=== PATIENT | male | born 1995 | race Caucasian/White ===

== ENCOUNTER 2023-11-24 10:13 | Observation (INO) ==
--- NOTE | 2023-11-24 10:49 | Emergency Department Note ---
Impression & Plan Open fracture proximal phalanx finger ED Provider Note CHIEF COMPLAINT: Left middle finger injury HISTORY OF PRESENT ILLNESS: This 28 year old male patient presents to the emergency department via private vehicle approximately 1 hour after injuring the left middle finger at work. The patient states he was putting together a metal cubicle. He states he dropped one of the pieces of metal and it fell, crushing the left middle finger. The patient rates the pain as throbbing and 5/10. The patient has full range of motion of the finger. No numbness or tingling. No lacerations. No other injuries. The patient has not had previous fracture to this finger. The patient has taken no medication for the pain. REVIEW OF SYSTEMS: A 6 system review of systems was completed with positives and pertinent negatives in the HPI. ALLERGIES: NKDA PHYSICAL EXAM: Vital Signs: Reviewed Nurse's notes, vital signs stable. GENERAL: This is a 28 year old male, in no acute distress, but appears to be in pain, well-developed, well-nourished. MUSCULOSKELETAL: There is no obvious deformity of the left middle there is a superficial wound on the dorsal aspect of the left middle finger overlying the proximal phalanx finger. With no active bleeding at this time. The patient has limited flexion due to pain. He maintains full extension of the left middle finger. Strength to resistance is 5/5. The proximal phalanx is maximally tender. There is no ligamentous instability. There is no laceration. Capillary refill less than 2 seconds. No tenderness of the remaining fingers or hand. Full range of motion of the wrist. NEURO: Alert and oriented to person, place, and time. Normal sensation to light and sharp touch. EMERGENCY DEPARTMENT COURSE: I examined the patient. An x-ray of the left middle finger was reviewed by myself and radiologist and showed fracture through the proximal phalanx. Given the overlying wound as well as the fracture, there is concern for possible open fracture. I did consult with Dr. Fawad Fleming. He reviewed images as well as a photo of the wound and would like to evaluate the patient in person. He did request the patient be started on IV antibiotics and tetanus vaccination be updated. IV access was obtained, labs were drawn. Patient was medicated with IV Ancef. Patient was made n.p.o. status and updated on this. Tetanus vaccination was administered. The patient was evaluated by Dr. Connelly. Please see his dictation. Decision was made to take patient to the OR. Please see orthopedics documentation regarding ongoing management and care of this patient. Differential diagnosis includes fracture, subluxation, dislocation, contusion, ligamentous injury, neurovascular, compartment syndrome, as well as other pathologies. I attest that I have personally reviewed the patient's current medication list. Blood Pressure Screening: Patient was found to have a slightly elevated blood pressure due to circumstances. I do not believe that the patient requires hypertension monitoring. The chart was completed utilizing [employer] Speech voice recognition software. Grammatical errors, random word insertions, pronoun errors, and incomplete sentences are an occasional consequence of this system due to software limitations, ambient noise, and hardware issues. Any formal questions or concerns about the content, text, or information contained within the body of this dictation should be directly addressed to the provider for clarification. Past Med/Surg History Problem List Open fracture proximal phalanx finger (Acute) No pertinent past surgical history Medical History No pertinent past medical history Social History Smoking Status: Never smoker Feels Safe at Home: Yes Allergies Allergies Allergy/AdvReac Type Severity Reaction Status Date / Time No Known Allergies Allergy Unverified 11/24/23 11:24 Home Meds Home Medications Medication Instructions Recorded Confirmed No Known Home Medications 11/24/23 11/24/23 Results & Data (ED) Vital Signs Vital Signs - 24 hr 11/24/23 10:17 11/24/23 13:35 11/24/23 14:00 Temperature 36.7 C 36.8 C Temperature Source Temporal Artery Scan Oral Pulse Rate 107 H Pulse Rate [Right Finger] 89 95 H Pulse Rhythm [Right Finger] Regular Pulse Strength [Right Finger] Normal Respiratory Rate 16 18 18 Respiratory Effort / Characteristics Non-Labored Spontaneous Non-Labored Spontaneous Non-Labored Spontaneous Respiratory Depth Normal Normal Normal Respiratory Pattern Regular Blood Pressure 144/79 H Blood Pressure [Right Arm] 144/73 H 156/84 H Blood Pressure Mean 100 Blood Pressure Mean [Right Arm] 96 108 Blood Pressure Position [Right Arm] Sitting Lying Pulse Oximetry 98 99 100 Oxygen Delivery Method Room Air Room Air Sepsis Recent Fever Within 48 Hours No Sepsis New/Unexplained Change in Mental Status No Sepsis Action Taken by Nursing No Action Required Laboratory Data 11/24/23 11:03 11/24/23 11:03 Lab Results 11/24/23 Range/Units 11:03 WBC 5.36 (4.8-10.8) K/ul RBC 4.66 L (4.70-6.10) M/uL Hgb 15.0 (14.0-18.0) g/dl Hct 42.0 (42.0-52.0) % MCV 90.1 (80.0-100.0) fL MCH 32.2 (25.0-34.0) pg MCHC 35.7 (32.0-36.0) g/dL RDW Std Deviation 37.2 (36.4-46.3) fL RDW Coeff of Donnie 11.3 L (11.5-14.5) % Plt Count 251 (130-400) K/uL MPV 9.7 (9.4-12.4) fL Immature Gran % (Auto) 0.2 % Neut % (Auto) 56.5 % Lymph % (Auto) 29.5 % Sanders % (Auto) 10.6 % Eos % (Auto) 2.6 % Baso % (Auto) 0.6 % Neut # (Auto) 3.03 (1.40-6.50) K/uL Lymph # (Auto) 1.58 (1.20-3.40) K/uL [place] # (Auto) 0.57 (0.11-0.59) K/uL Eos # (Auto) 0.14 (0.00-0.50) K/uL Baso # (Auto) 0.03 (0.00-0.20) K/uL Immature Gran # (Auto) 0.01 (0.01-0.20) K/uL Sodium 138 (136-145) mmol/L Potassium 3.4 L (3.5-5.1) mmol/L Chloride 103 (98-107) mmol/L Carbon Dioxide 28 (21-32) mmol/L Anion Gap 7 (3-11) BUN 12 (6-23) mg/dl Creatinine 1.09 (0.6-1.4) mg/dl Est Cr Clr Drug Dosing 115.8 ml/min Est GFR ( Amer) 108.0 ml/min Est GFR (Non-Af Amer) 93.2 ml/min BUN/Creatinine Ratio 11.0 (10-20) Glucose 98 (70-99(Fasting)) mg/dl Calcium 9.7 (8.6-10.3) mg/dl Total Bilirubin 0.8 (0.2-1.0) mg/dl AST 18 (13-39) U/L ALT 12 (7-52) U/L Alkaline Phosphatase 54 (34-104) U/L Total Protein 7.8 (6.0-8.3) gm/dl Albumin 5.1 H (3.4-5.0) gm/dl Globulin 2.7 (2.5-4.0) gm/dl Albumin/Globulin Ratio 1.9 (0.9-2) Administered Medications Lactated Ringer's (Lr) 1,000 mls @ 15 mls/hr IV .Q24H PRASANTH Stop: 12/24/23 13:29 Last Infusion: 11/24/23 14:38 Dose: Infused Documented By: Admin: 11/24/23 14:30 Dose: 15 mls/hr Documented By: MAXIM Discontinued Medications Diphtheria/Pertussis/Tetanus Vacc (Diphther/Tetan/Pertus Vaccine (Tdap, Adol/Adult) 0.5ml) 0.5 ml IM .ONCE ONE Stop: 11/24/23 11:11 Last Admin: 11/24/23 11:13 Dose: 0.5 ml Documented By: HS Cefazolin Sodium (Ancef 2000mg) 2,000 mg in 15 mls @ 3.75 mls/min IV NOW STA Stop: 11/24/23 10:53 Last Admin: 11/24/23 11:14 Dose: 3.75 mls/min Documented By: HS Imaging Data Radiologist's Impression: Finger X-Ray 11/24/23 10:20 XR finger(s) LT min 2V CLINICAL HISTORY: Finger trauma COMPARISON: None FINDINGS: There is an acute transverse minimally displaced and angulated fracture within the mid shaft of the proximal phalanx of the left third finger. No additional fractures are present. IMPRESSION: Acute minimally displaced and angulated fracture within the mid shaft of the proximal phalanx of the left third finger. ACT 112: Negative or not required by law. Electronically signed by: Robert Escamilla M.D. 11/24/2023 11:17 AM Discharge Plan Visit Data Chief Complaint: Hand Injury/Pain Stated Complaint: R HAND INJURY, SMASHED AND CUT MIDDLE FINGER ED Provider: Alec Lawton ED Midlevel Provider: Mary Austin Discharge Problem: Open fracture proximal phalanx finger Patient Disposition: Still a Patient Discharge Instructions Interventions: ED Discharge Assessment Last Done: 11/24/23 14:00 Forms Stand Alone Forms: [facility] [employer] Prescriptions Prescriptions: No Action No Known Home Medications Referrals Referrals: PCP,NO [Primary Care Provider] -
[2023-11-24] MEDS: DIPHTHER/TETAN/PERTUS Vaccine (Tdap, Adol/Adult) 0.5mL IM ONE (11:13)
[2023-11-24] MEDS: ceFAZolin 2000MG 2,000 MG/15 ML SYR IV STA (11:14)
[2023-11-24 11:18] LABS: Basophils # (auto) 0.03 K/uL (0.00-0.20); Basophils % (auto) 0.6 %; Eosinophils # (auto) 0.14 K/uL (0.00-0.50); Eosinophils % (auto) 2.6 %; Immature Granulocytes # (auto) 0.01 K/uL (0.01-0.20); Immature Granulocytes % (auto) 0.2 %; Lymphocytes # (auto) 1.58 K/uL (1.20-3.40); Lymphocytes % (auto) 29.5 %; Mean Corpuscular Hemoglobin 32.2 pg (25.0-34.0); Mean Corpuscular Hgb Conc 35.7 g/dL (32.0-36.0); Mean Corpuscular Volume 90.1 fL (80.0-100.0); Mean Platelet Volume 9.7 fL (9.4-12.4); Monocytes # (auto) 0.57 K/uL (0.11-0.59); Monocytes % (auto) 10.6 %; Neutrophils # (auto) 3.03 K/uL (1.40-6.50); Neutrophils % (auto) 56.5 %; Platelet Count 251 K/uL (130-400); RDW Coefficient of Variation 11.3 % (11.5-14.5); RDW Standard Deviation 37.2 fL (36.4-46.3); Red Blood Count 4.66 M/uL (4.70-6.10); White Blood Count 5.36 K/ul (4.8-10.8)
--- NOTE | 2023-11-24 11:18 | XRay Report ---
XR finger(s) LT min 2V CLINICAL HISTORY: Finger trauma COMPARISON: None FINDINGS: There is an acute transverse minimally displaced and angulated fracture within the mid sha ft of the proximal phalanx of the left third finger. No additional fractures are present. IMPRESSION: Acute minimally displaced and angulated fracture within the mid shaft of the proximal pha lanx of the left third finger. ACT 112: Negative or not required by law. Electronically signed by: Robert Escamilla M.D. 11/24/2023 11:17 AM
--- NOTE | 2023-11-24 11:23 | History & Physical Report ---
Date of Service November 24, 2023 Assessment & Plan (1) Open fracture proximal phalanx finger: Plan: Patient was seen and evaluated today in the emergency room by Dr. Connelly. He has an open midshaft comminuted fracture of the left middle finger proximal phalanx fracture. Urgent surgical intervention was recommended. This will be for immediate irrigation, debridement and possible percutaneous pinning of the left middle finger proximal phalanx fracture. Patient will obtain a tetanus today in the emergency room. He was instructed to be NPO. He last ate tangerines and peanut butter crackers at 8 AM. He knows that he will be admitted after surgery for potentially 48 hours for IV antibiotics. Risks and complications of the procedure were explained to the patient and include but are not limited to infection, pain, bleeding, scarring, nerve and blood vessel damage, wound problems, weakness, stiffness, incomplete relief of symptoms, tendon or ligament injury, recurrent surgery, malunion, nonunion, hardware failure, blood clots, embolisms, heart attack, stroke and . He has no history of MRSA. No history of blood clots, latex allergy or metal sensitivity. No bleeding or clotting disorders. He does not need any preoperative laboratory work, EKG prior to surgery. He will be urgently taken to the operating room for surgery later today. All questions were answered. He will need to be out of work for approximately 2 to 3 weeks or upwards of 6 weeks. Patient understands and agrees with the plan. All questions were answered. Informed consent was obtained today. Laboratory work is currently pending. He understands and agrees with the plan. History of Present Illness Chief Complaint: Left middle finger injury Primary Care Provider: NO PCP This 28 year old male patient presents to the emergency department via private vehicle approximately 1 hour after injuring the left middle finger at work. The patient states he was putting together a metal cubicle. He states he dropped one of the pieces of metal and it fell, crushing the left middle finger. The patient rates the pain as throbbing and 5/10. The patient has full range of motion of the finger. No numbness or tingling. No lacerations. No other injuries. The patient has not had previous fracture to this finger. The patient has taken no medication for the pain. Allergies Allergy/AdvReac Type Severity Reaction Status Date / Time No Known Allergies Allergy Unverified 11/24/23 11:24 Home Medications Medication Instructions Recorded Confirmed Type No Known Home Medications 11/24/23 11/24/23 History Past Med/Surg History Problem List (Updated 11/24/23 @ 11:25 by Edie Babb PA-C) Open fracture proximal phalanx finger No pertinent past surgical history Medical History No pertinent past medical history Social History Smoking Status: Never smoker Feels Safe at Home: Yes Review of Systems Constitutional: no fever, no chills and no fatigue Eyes: no corrective lenses and no eye pain Ear, Nose, Mouth, Throat: no ear pain, no tinnitus, no hearing loss, no dizziness, no facial pain, no loose teeth and no sore throat Respiratory: no cough and no dyspnea Cardiovascular: no chest pain Gastrointestinal: no abdominal pain Musculoskeletal: + joint pain (left middle finger pain; o pen wound, active bleeding) Integumentary: + wounds (left middle finger) Neurologic: no gait abnormality and no unsteadiness Psychiatric: no anhedonia, no irritability and no anxiety Endocrine: no fatigue Hematologic / Lymphatic: no easy bleeding and no easy bruising Physical Exam Constitutional: WD/WN, vitals as above Eyes: PERRL, conjunctivae normal, anicteric sclerae ENMT: external ear and nose normal, oropharynx normal Neck: trachea midline, no thyromegaly Respiratory: normal respiratory effort, lungs clear to auscultation Cardiovascular: RRR, no murmur, no edema Chest (Breasts): Chest: normal inspection of chest Gastrointestinal (Abdomen): normal bowel sounds, soft, nontender, no hepatosplenomegaly Musculoskeletal: Exam focused on his left middle finger: He has no edema. He has 2 small lacerations 1 over the proximal phalanx and 1 over the PIP joint. The proximal wound is actively bleeding and mildly tender with palpation. About 3 to 4 mm in length. Tolerates full extension of the left middle finger. Can gently flex the DIP joint and hold against resistance but does reproduce pain in the finger. Capillary fill is brisk. Distal sensation is normal. Nontender throughout the rest of his hand. No other wounds appreciated. Psychiatric: A+Ox3, euthymic affect Results & Data Results & Data Vital Signs (Past 12 Hours) Vital Signs Temp Pulse Resp BP Pulse Ox 11/24/23 10:17 36.7 C 107 H 16 144/79 H 98 Laboratory Results 11/24/23 Range/Units 11:03 WBC 5.36 (4.8-10.8) K/ul RBC 4.66 L (4.70-6.10) M/uL Hgb 15.0 (14.0-18.0) g/dl Hct 42.0 (42.0-52.0) % MCV 90.1 (80.0-100.0) fL MCH 32.2 (25.0-34.0) pg MCHC 35.7 (32.0-36.0) g/dL RDW Std Deviation 37.2 (36.4-46.3) fL RDW Coeff of Donnie 11.3 L (11.5-14.5) % Plt Count 251 (130-400) K/uL MPV 9.7 (9.4-12.4) fL Immature Gran % (Auto) 0.2 % Neut % (Auto) 56.5 % Lymph % (Auto) 29.5 % [place] % (Auto) 10.6 % Eos % (Auto) 2.6 % Baso % (Auto) 0.6 % Neut # (Auto) 3.03 (1.40-6.50) K/uL Lymph # (Auto) 1.58 (1.20-3.40) K/uL [place] # (Auto) 0.57 (0.11-0.59) K/uL Eos # (Auto) 0.14 (0.00-0.50) K/uL Baso # (Auto) 0.03 (0.00-0.20) K/uL Immature Gran # (Auto) 0.01 (0.01-0.20) K/uL Sodium Pending Potassium Pending Chloride Pending Carbon Dioxide Pending Anion Gap Pending BUN Pending Creatinine Pending Est Cr Clr Drug Dosing Pending Est GFR ( Amer) Pending Est GFR (Non-Af Amer) Pending BUN/Creatinine Ratio Pending Glucose Pending Calcium Pending Total Bilirubin Pending AST Pending ALT Pending Alkaline Phosphatase Pending Total Protein Pending Albumin Pending Globulin Pending Albumin/Globulin Ratio Pending Diagnostic Findings XR finger(s) LT min 2V CLINICAL HISTORY: Finger trauma COMPARISON: None FINDINGS: There is an acute transverse minimally displaced and angulated fracture within the mid shaft of the proximal phalanx of the left third finger. No additional fractures are present. IMPRESSION: Acute minimally displaced and angulated fracture within the mid shaft of the proximal phalanx of the left third finger. Code Status & VTE Plan VTE Prophylaxis Plan VTE Prophylaxis will be ordered: Yes Reason for no VTE drug order: Treatment not indicated
[2023-11-24 11:34] LABS: Albumin Globulin Ratio 1.9 (0.9-2); Albumin Level 5.1 gm/dl (3.4-5.0); Bilirubin,Total 0.8 mg/dl (0.2-1.0); Calcium 9.7 mg/dl (8.6-10.3); Creatinine Clr Calc Pharmacy 115.8 ml/min; Est GFR (Non-African American) 93.2 ml/min; Globulin 2.7 gm/dl (2.5-4.0); Potassium 3.4 mmol/L (3.5-5.1); Total Protein 7.8 gm/dl (6.0-8.3)
--- NOTE | 2023-11-24 11:37 | Anesthesiology Consultation ---
Date of Service November 24, 2023 Assessment & Plan Chart Review Chart Review: data entry specialist initiated History Surgery Operation Date: 11/24/23 10:30 Proposed Procedures p Left Middle Finger Incision and Drainage - Kieran Connelly MD s with Vlad - Kieran Connelly MD Height/Weight Height: 5 ft 10 in Weight: 89.8 kg Allergies Allergy/AdvReac Type Severity Reaction Status Date / Time No Known Allergies Allergy Unverified 11/24/23 11:24 Medications Home Medications Medication Instructions Recorded Confirmed Last Taken No Known Home Medications 11/24/23 11/24/23 Unknown Past Medical History Medical History No pertinent past medical history Social History Smoking Status: Never smoker Physical Exam Vital Signs Last Vital Signs Temp 98.1 F 11/24/23 10:17 Pulse 107 H 11/24/23 10:17 Resp 16 11/24/23 10:17 BP 144/79 H 11/24/23 10:17 Pulse Ox 98 11/24/23 10:17 Testing Laboratory Results 11/24/23 11:03 11/24/23 11:03
[2023-11-24] MEDS ORDERED: fentaNYL citrate PF 100 MCG/2 ML VIAL ONE ×2 (14:20→15:03)
[2023-11-24] MEDS ORDERED: MIDAZOLAM HCL 1 MG/ML 2ML VIAL ONE (14:20)
[2023-11-24] MEDS ORDERED: DexMEDEtomidine HCL IV 100 MCG/ML VIAL IV ONE (14:21)
[2023-11-24] MEDS ORDERED: ONDANSETRON INJ 2 MG/ML 2 ML VIAL IV PRN ×2 (14:28→18:12)
[2023-11-24] MEDS ORDERED: ATROPINE SULFATE 0.1 MG/ML 10ML SYR IV PRN (14:28)
[2023-11-24] MEDS ORDERED: HYDROmorphone INJ 2 MG/ML SYR/VIAL IV PRN (14:28)
[2023-11-24] MEDS ORDERED: ePHEDrine sulfate 50 MG/ML AMP IV PRN (14:28)
[2023-11-24] MEDS: LACTATED RINGER'S 1,000 ML IV SCH (14:30)
[2023-11-24] MEDS: ceFAZolin 1000MG 1,000 MG/7.5 ML SYR IV ONE (14:53)
[2023-11-24] MEDS ORDERED: ONDANSETRON INJ 2 MG/ML 2 ML VIAL ONE (15:00)
[2023-11-24] MEDS ORDERED: PROPOFOL IV EMULSION 10 MG/ML 20 ML VIAL IV ONE (15:00)
[2023-11-24] MEDS ORDERED: DEXAMETHASONE SOD INJ 4 MG/ML VIAL ONE (15:00)
[2023-11-24] MEDS ORDERED: ROCURONIUM BROMIDE 10 MG/ML 5 ML VIAL IV ONE (15:00)
[2023-11-24] MEDS ORDERED: SUCCINYLCHOLINE CHLORIDE 20 MG/ML 10 ML VIAL IV ONE (15:00)
[2023-11-24] MEDS ORDERED: LIDOCAINE 2% 2 ML VIAL/AMP(20MG/ML) INFIL ONE (15:00)
[2023-11-24] MEDS ORDERED: GLYCOPYRROLATE 0.2 MG/ML VIAL ONE (15:00)
[2023-11-24] MEDS ORDERED: SUGAMMADEX SODIUM 200 MG/2 ML VIAL IV ONE (15:18)
[2023-11-24] MEDS: BUPIVACAINE 0.5 % 5 MG/1 ML MPF 30ML VIAL ONE (15:53)
[2023-11-24] MEDS: LIDOCAINE 1% LOCAL 20 ML VIAL ONE (15:53)
--- NOTE | 2023-11-24 16:12 | Operative Report ---
Post Operative Report Pre & Post Diagnosis Operation Date: 11/24/23 10:30 <No data on this case meets the specified criteria> Grade 1 open fracture of the left middle finger proximal phalanx I identified the patient and participated in the time-out.: Yes Procedure Operation Date: 11/24/23 10:30 <No data on this case meets the specified criteria> Irrigation and debridement with open reduction and percutaneous pinning of the left middle finger proximal phalanx Surgeon Kieran Connelly MD Senior Paralegal Edie Babb no resident or fellow available Estimated Blood Loss 2 Findings Consistent with Post-Op Diagnosis Specimens None Anesthesia Type General Regional Complications none Disposition Accompanied Patient To Recovery: No Disposition: Recovery Room Indications Patient is 28 years old. He sustained a work-related injury when a piece of metal pipe fell on his left middle finger causing a grade 1 open fracture. He received tetanus and IV antibiotics in the emergency room and is taken to the OR for irrigation debridement and pinning. Description of Procedure Informed consent obtained. Patient identified. He identified the procedure site as the left middle finger. I marked with my initials. A preop surgical timeout performed. A preop dose of antibiotics given. He was taken to the operating room positioned supine on the operating room table with the left arm on a hand table. A tourniquet was applied to the left thigh. The limb was prescrubbed and then prepped with Betadine. Draped in usual sterile fashion. DVT prophylaxis was not indicated. The examination demonstrated a complex wound stellate and configuration but only about 3 or 4 mm in size overlying the dorsal aspect of the middle portion of the proximal phalanx with an unstable fracture beneath it. The limb was exsanguinated with the Esmarch and tourniquet inflated to 250 mmHg. I extended the laceration proximally and distally for about a total of 4 cm. The extensor tendon was identified and was intact. There was however a longitudinal split just to the radial side of the midline and beneath that was the fracture site indicating an open fracture. I utilized this split extending it proximally and distally to gain exposure to the fracture site. The periosteum was largely disrupted and over the dorsal and radial side of the fracture it was exposed. There was an incomplete comminuted fracture fragment p roximal dorsal. The fracture site was opened by flexing the fracture site and irrigated with 1 L of sterile saline. The fracture was then anatomically aligned and was stable. I then inserted 2 0.035 inch K wires from distal to proximal in a crisscross fashion. Pins inserted x 1 with radiographic confirmation of fracture reduction and pin location. The fracture was stable. Visually the fracture was anatomically aligned. The tourniquet was let down and meticulous hemostasis was performed. Further irrigation was accomplished with bulb syringe. I then closed the split in the extensor tendon using running 4-0 Vicryl. 4-0 nylon on the skin. Jurgan balls were applied to the pins which were bent away from the skin and cut. I saw sterile dressing was applied Xeroform gauze soft wrap and a AlumaFoam volar finger splint. Patient awakened from anesthesia difficulty and taken to the recovery room in stable condition. There were no specimens complications. Counts were correct and blood loss is estimated to be 2 cc. At the conclusion of the operation spoke to patient's mom informed of my findings and postop instructions were given. He will be admitted to the hospital for IV antibiotics times at least 24 hours. I attest to the content of the Intraoperative Record and any orders documented therein. Any exceptions are noted below.
--- NOTE | 2023-11-24 16:13 | Operative Report ---
Post Operative Report Pre & Post Diagnosis Operation Date: 11/24/23 10:30 Pre-Op Diagnosis: Open fracture proximal phalanx finger-left Post-Op Diagnosis: Open fracture proximal phalanx finger-left I identified the patient and participated in the time-out.: Yes Procedure Operation Date: 11/24/23 10:30 Actual Procedures p Left Middle Finger Incision and Drainage - Kieran Connelly MD s Open Reduction, Internal Fixation Left Middle Finger Fracture - Kieran Connelly MD Surgeon Kieran Connelly MD Timber Cruiser Edie Babb PA-C; no fellow resident available. Estimated Blood Loss 2 Findings Consistent with Post-Op Diagnosis Specimens None Anesthesia Type General Regional Description of Procedure Patient was taken to the operating room and placed under general anesthesia. Time out was performed. He was given 2 g of IV Ancef for surgical prophylaxis. I was present during the entire case, please see Dr. Connelly' operative report for further details regarding today's procedure. Prior to applying the splint a digital block was performed with 9 cc of half percent Marcaine plain and 1% lidocaine plain 50-50 mix. Patient tolerated procedure well. Patient was awakened and transferred to the recovery room in stable condition. I attest to the content of the Intraoperative Record and any orders documented therein. Any exceptions are noted below.
--- NOTE | 2023-11-24 16:57 | Anesthesiology Progress Note ---
Date of Service November 24, 2023 Anesthesia Post Procedure Vital Signs Vital Signs: Temp Pulse Pulse Pulse Resp BP BP 11/24/23 16:55 36.4 C L 65 12 127/85 11/24/23 16:45 66 16 128/86 11/24/23 16:35 75 17 127/91 11/24/23 16:25 57 L 12 110/71 11/24/23 16:15 36.0 C L 56 L 12 109/70 11/24/23 14:00 36.8 C 95 H 18 156/84 H 11/24/23 13:35 89 18 144/73 H 11/24/23 10:17 36.7 C 107 H 16 144/79 H Pulse Ox O2 Del Method O2 Flow Rate 11/24/23 16:55 100 Room Air 0 11/24/23 16:45 100 Room Air 0 11/24/23 16:35 99 Room Air 0 11/24/23 16:25 97 Oxymask 8 11/24/23 16:15 93 Oxymask 8 11/24/23 14:00 100 Room Air 11/24/23 13:35 99 Room Air 11/24/23 10:17 98 Pain Intensity Left Hand: Pain Intensity: 6 Transfer of Care Handoff Completed per policy Notes Mental Status: alert / awake / arousable Patient Amnestic to Procedure: Yes Nausea / Vomiting: adequately controlled Pain: adequately controlled Airway Patency, RR, SpO2: stable & adequate BP & HR: stable & adequate Hydration State: stable & adequate Anesthetic Complications: no major complications apparent and Pt Satisfied with anesthetic care
[2023-11-24] MEDS ORDERED: HYDROmorphone INJ 0.5 MG/0.5 ML SYR IV PRN (18:12)
[2023-11-24] MEDS ORDERED: diphenhydrAMINE 50 MG/ML VIAL IV PRN (18:12)
[2023-11-24] MEDS ORDERED: diphenhydrAMINE Capsule 25 MG CAP PO PRN (18:12)
[2023-11-24] MEDS ORDERED: TAMSULOSIN HCL 0.4 MG CAP PO PRN (18:12)
[2023-11-24] MEDS ORDERED: MAGNESIUM HYDROXIDE SUSP 30 ML UDC PO PRN (18:12)
[2023-11-24] MEDS ORDERED: HYDROmorphone INJ 1 MG/ML SYRINGE IV PRN (18:12)
[2023-11-24] MEDS ORDERED: bisacodyL 10 MG SUPP PR PRN (18:12)
[2023-11-24] MEDS ORDERED: NALOXONE HCL 0.4 MG/1 ML VIAL/CARP IV PRN (18:12)
[2023-11-24] MEDS ORDERED: oxyCODONE HCL IR 5 MG TAB (IMMEDIATE RELEASE) PO PRN (18:12)
--- NOTE | 2023-11-24 19:15 | Fluoroscopy Report ---
INTRAOPERATIVE RADIOGRAPHS CLINICAL HISTORY: Open reduction and internal fixation of the left third proximal phalanx. Fluoro time: 20 seconds Ka,r: 0.42 mGy FINDINGS: 3 spot fluoroscopic views of the left third finger are compared to radiographs dated 024. Again seen is a comminuted horizontal fracture through the midshaft of the third proximal phalan x. 2 pins are placed transfixing the fracture. Near-anatomic alignment is maintained. The hardware ap pears intact. Overlying soft tissue edema is noted. IMPRESSION: Intraoperative images from fixation of a third proximal phalangeal fracture as above. Electronically signed by: Agustín Castano M.D. 11/24/2023 7:13 PM
[2023-11-24] MEDS: SODIUM CHLORIDE 0.9% 1,000 ML IV SCH (20:30)
[2023-11-24] MEDS: DOCUSATE SODIUM 100 MG CAP PO SCH (20:46)
[2023-11-24] MEDS: ACETAMINOPHEN 500 MG TAB PO SCH (22:20)
[2023-11-24] MEDS: ceFAZolin 2000MG 2,000 MG/15 ML SYR IV SCH (22:21)
[2023-11-25] MEDS: MULTIVITAMIN TAB PO SCH (07:59)
--- NOTE | 2023-11-25 10:27 | Orthopedic Progress Note ---
Date of Service November 25, 2023 Assessment & Plan (1) Open fracture proximal phalanx finger: Plan: Pain control with p.o. medication Keep dressing and splint in place on left hand Ice and elevate DVT prophylaxis is not indicated IV Ancef to continue Will discuss findings with Dr. Connelly Will need to follow-up with [facility] orthopedics in 1 week With questions contact the clinic at [phone] Admission and Anticipated Discharge Date Admission Date: November 24, 2023 Subjective This 28-year-old male and is day 1 status post left third finger irrigation and debridement with open reduction internal fixation with percutaneous pinning after sustaining a traumatic injury at work. Patient states that he is doing well today. He states that his splint and dressing feel fairly comfortable. He is able to move his thumb fourth and fifth digits without issue. His pain is well-controlled with p.o. oxycodone. He states that he is currently receiving IV Ancef and understands that he will most likely be in house for the next day or 2. Currently he denies chest pain, shortness of breath, fever, chills, sweats, numbness or tingling in his left hand upper extremity. He also denies nausea, vomiting, diarrhea, difficulty voiding and states that he has been doing laps around the shook since yesterday. Review of Systems Review of Systems: All systems reviewed & are unremarkable except as noted in Subjective Physical Exam Physical Exam: Left hand: Dressings clean dry intact left in place. Splint is noted on the volar surface of his third finger. Patient is able to detect light sensation to touch over the pads of all digits. He is able to resist flexion and extension of the IP and MCP joint of the thumb. He has full movement of fingers 4 and 5. He is neurovascularly intact. Results & Data Vital Signs (Past 12 Hours) Vital Signs Temp Pulse Resp BP Pulse Ox O2 Del Method 11/25/23 09:07 36.4 C L 70 16 113/56 L 98 Room Air 11/25/23 07:11 36.5 C 59 L 16 95/50 L 97 Room Air 11/25/23 04:00 36.5 C 63 18 100/60 98 Room Air 11/25/23 00:00 37 C 124 H 18 122/64 97 Room Air Diagnostic Findings Laboratory Results WBC 5.36 K/ul (4.8-10.8) 08/29/24 11:03 RBC 4.66 M/uL (4.70-6.10) L 11/24/23 11:03 Hgb 15.0 g/dl (14.0-18.0) 11/24/23 11:03 Hct 42.0 % (42.0-52.0) 11/24/23 11:03 MCV 90.1 fL (80.0-100.0) 11/24/23 11:03 MCH 32.2 pg (25.0-34.0) 11/24/23 11:03 MCHC 35.7 g/dL (32.0-36.0) 11/24/23 11:03 RDW Std Deviation 37.2 fL (36.4-46.3) 11/24/23 11:03 RDW Coeff of Donnie 11.3 % (11.5-14.5) L 11/24/23 11:03 Plt Count 251 K/uL (130-400) 11/24/23 11:03 MPV 9.7 fL (9.4-12.4) 11/24/23 11:03 Immature Gran % (Auto) 0.2 % 11/24/23 11:03 Neut % (Auto) 56.5 % 11/24/23 11:03 Lymph % (Auto) 29.5 % 11/24/23 11:03 [place] % (Auto) 10.6 % 11/24/23 11:03 Eos % (Auto) 2.6 % 11/24/23 11:03 Baso % (Auto) 0.6 % 11/24/23 11:03 Neut # (Auto) 3.03 K/uL (1.40-6.50) 11/24/23 11:03 Lymph # (Auto) 1.58 K/uL (1.20-3.40) 11/24/23 11:03 [place] # (Auto) 0.57 K/uL (0.11-0.59) 11/24/23 11:03 Eos # (Auto) 0.14 K/uL (0.00-0.50) 11/24/23 11:03 Baso # (Auto) 0.03 K/uL (0.00-0.20) 11/24/23 11:03 Immature Gran # (Auto) 0.01 K/uL (0.01-0.20) 11/24/23 11:03 Sodium 138 mmol/L (136-145) 11/24/23 11:03 Potassium 3.4 mmol/L (3.5-5.1) L 11/24/23 11:03 Chloride 103 mmol/L (98-107) 11/24/23 11:03 Carbon Dioxide 28 mmol/L (21-32) 11/24/23 11:03 Anion Gap 7 (3-11) 11/24/23 11:03 BUN 12 mg/dl (6-23) 11/24/23 11:03 Creatinine 1.09 mg/dl (0.6-1.4) 11/24/23 11:03 Est Cr Clr Drug Dosing 115.8 ml/min 11/24/23 11:03 Est GFR ( Amer) 108.0 ml/min 11/24/23 11:03 Est GFR (Non-Af Amer) 93.2 ml/min 11/24/23 11:03 BUN/Creatinine Ratio 11.0 (10-20) 11/24/23 11:03 Glucose 98 mg/dl (70-99(Fasting)) 11/24/23 11:03 Calcium 9.7 mg/dl (8.6-10.3) 11/24/23 11:03 Total Bilirubin 0.8 mg/dl (0.2-1.0) 11/24/23 11:03 AST 18 U/L (13-39) 11/24/23 11:03 ALT 12 U/L (7-52) 11/24/23 11:03 Alkaline Phosphatase 54 U/L (34-104) 11/24/23 11:03 Total Protein 7.8 gm/dl (6.0-8.3) 11/24/23 11:03 Albumin 5.1 gm/dl (3.4-5.0) H 11/24/23 11:03 Globulin 2.7 gm/dl (2.5-4.0) 11/24/23 11:03 Albumin/Globulin Ratio 1.9 (0.9-2) 11/24/23 11:03 Impressions Finger X-Ray 11/24/23 10:20 XR finger(s) LT min 2V CLINICAL HISTORY: Finger trauma COMPARISON: None FINDINGS: There is an acute transverse minimally displaced and angulated fracture within the mid shaft of the proximal phalanx of the left third finger. No additional fractures are present. IMPRESSION: Acute minimally displaced and angulated fracture within the mid shaft of the proximal phalanx of the left third finger. ACT 112: Negative or not required by law. Electronically signed by: Robert Escamilla M.D. 11/24/2023 11:17 AM
[2023-11-25 12:01] VITALS: BP 130/66; PULSE 86; RESP 18; TEMP 98.2; O2SAT 99
--- NOTE | 2023-11-30 08:47 | Discharge Summary ---
Date of Service November 30, 2023 Admission HPI Per Admitting Provider This 28 year old male patient presents to the emergency department via private vehicle approximately 1 hour after injuring the left middle finger at work. The patient states he was putting together a metal cubicle. He states he dropped one of the pieces of metal and it fell, crushing the left middle finger. The patient rates the pain as throbbing and 5/10. The patient has full range of motion of the finger. No numbness or tingling. No lacerations. No other injuries. The patient has not had previous fracture to this finger. The patient has taken no medication for the pain. Discharge Data Consultations 11/24/23 10:51 Consult Orthopedic Surgery Stat Procedures Performed Operation Date: 11/24/23 10:30 Actual Procedures p Left Middle Finger Incision and Drainage - Kieran Connelly MD s Open Reduction, Internal Fixation Left Middle Finger Fracture - Kieran Connelly MD Hospital Course (1) Open fracture proximal phalanx finger: Patient was admitted to [facility] on November 24, 2023 after sustaining a crush injury to his left hand while at work. He presented immediately to the emergency room and was found to have a grade 1 open proximal phalanx fracture of his left middle finger. It was irrigated in the emergency room and orthopedic consultation was obtained. He was seen and evaluated by Dr. Connelly. It was determined that he would benefit from urgent irrigation, debridement and reduction of the fracture with internal fixation. He was kept NPO. He was taken to the operating room later that afternoon. On November 24, 2023 with general anesthesia he underwent an irrigation, debridement, open reduction internal fixation of his left middle finger open fracture with Dr. Connelly. He was given IV Ancef 2 g every 8 hours for treatment of the open fracture. He tolerated the procedure well. He was placed in a splint. The splint and dressings were kept in place. He was advised to elevate and ice his hand as needed for swelling. He was given a regular diet. He was given Tylenol, oxycodone, tramadol and IV Dilaudid to use as needed for pain. A bowel regimen was also ordered. He was allowed out of bed as tolerated, nonweightb earing of his left hand. IV Ancef was continued for 24 hours after his procedure. He did not need any DVT prophylaxis with medication but he was given ABI stockings and AV impulse boots during his inpatient stay. His vitals remained stable. His pain was well-controlled. He was discharged to his home in stable condition on November 25, 2023. Discharge instructions were reviewed and provided. He will follow-up as an outpatient for dressing change. All questions were answered.
== END 2023-11-25 18:12 | disposition home or self-care (01) | DRG 906 ==
LOC: ED 10:13 → OR 14:02 → 3W 16:21 → INTOOBSV 16:21
DX: W20.8XXA Other cause of strike by thrown, projected or falling object, initial encounter; S62.613B Displaced fracture of proximal phalanx of left middle finger, initial encounter for open fracture; F17.210 Nicotine dependence, cigarettes, uncomplicated; S67.193A Crushing injury of left middle finger, initial encounter